=== PATIENT | male | born 1960 | race African-American/Black ===

== ENCOUNTER 2018-05-29 08:51 | Emergency (ER) | payer MEDICAID, OTHER ==
[~2018-05-29] VITALS: Ht 177.8 cm; Wt 111.1 kg
[2018-05-29 09:00] VITALS: BP 178/94
[2018-05-29] MEDS ORDERED: KETOROLAC TROMETH 60MG/2ML VIAL IM ONE (09:15)
== END 2018-05-29 09:40 | disposition home or self-care (01) ==
LOC: ER 08:51
DX: M54.5 Low back pain (principal); G89.29 Other chronic pain; I10 Essential (primary) hypertension; Z76.0 Encounter for issue of repeat prescription
CPT/HCPCS: 96372; 99283; J1885